=== PATIENT | male | born 1985 | race Two or more races ===

== ENCOUNTER 2016-09-07 17:46 | Emergency (ER) | payer MEDICAID ==
[2016-09-07 17:56] VITALS: BP 148/110; PULSE 68; RESP 16; TEMP 98.2; O2SAT 95
--- NOTE | 2016-09-07 18:01 | EDPHY ---
H & P Time Seen by Provider: 09/07/16 17:59 HPI/ROS: CHIEF COMPLAINT: Back/buttock pain HISTORY OF PRESENT ILLNESS: Patient has had nontraumatic right side lower back and buttock pain for last 3 weeks, radiating to right leg. He was seen at [facility] yesterday and had x-rays done and was prescribed cyclobenzaprine. Today took 1 oral cyclobenzaprine and a single 200 mg oral ibuprofen. Patient describes pain which is in his right buttock and radiating down his right leg toward his foot. Occasionally his right foot feels sleepy but generally has preserved sensation and motor function. No incontinence. Presents today because he says symptoms are severe compared to yesterday, and worse with movement or walking. Better lying down. Not associated with fever or chills or any recent injury or trauma. REVIEW OF SYSTEMS: Eye: no change in vision ENT: no sore throat Cardiac: no chest pain or syncope Pulmonary: no cough or SOB Abdomen: no vomiting, diarrhea, abdominal pain Musculoskeletal: HPI; some bilateral calf soreness last 48 hours. Skin: no rash Neuro: no headache Constitutional: no fever : no urinary symptoms A comprehensive 10 point review of systems is otherwise negative aside from elements mentioned in the history of present illness. PAST MEDICAL HISTORY: Recently diagnosed hypertension, no previous back surgeries, no history of cancer. No history of DVT. Social history: Here with partner, negative for IV drug abuse. No recent travel, no family history of venous thromboembolism. General Appearance: Alert and conversant, cooperative. Eyes: No scleral icterus. ENT, Mouth: Normal mucous membranes. Respiratory: Normal respiratory effort, breath sounds equal, lungs are clear to auscultation. Cardiovascular: Regular rate and rhythm. Normal dorsalis pedis pulses bilaterally. Gastrointestinal: Abdomen is soft and non tender. No pulsatile masses. Neurological: Alert and oriented x3. Normally conversant. Face symmetric, normal movement and sensation in all extremities. Straight leg raising positive on the right at 20 degrees for reproduction of symptoms. Patellar reflexes 3+ and symmetric, ankle reflexes 1+ bilaterally symmetric, toes downgoing and no clonus. Ambulatory. Skin: Warm and dry, no rashes. No zoster. Musculoskeletal: No cervical thoracic or lumbar midline spinal tenderness to palpation. No paraspinal muscle tenderness to palpation but he does have tenderness over the right sciatic notch. No calf tenderness either side, compartments soft in both thighs and calves. Psychiatric: Not agitated. Emergency Department course/MDM: Does not have red flags to suggest high likelihood for emergent surgical conditions such as epidural abscess or spinal cord compromise or fracture or dislocation. I think DVT or venous thromboembolism would be unlikely. Risk benefit and alternatives of steroid therapy discussed and consented. Does not have local point muscular tenderness to suggest likely benefit from trigger point injection. Oral Vicodin 7 for pain not controlled by NSAID, muscle relaxant, steroids. Patient's blood pressure is noted, he was started on antihypertensive medication today by his primary care physician. Aortic aneurysm or dissection or other vascular problem considered but thought not likely source for symptoms. Smoking Status: Light smoker Constitutional: Initial Vital Signs Temperature (C) 36.8 C 09/07/16 17:52 Heart Rate 68 09/07/16 17:52 Respiratory Rate 16 09/07/16 17:52 Blood Pressure 148/110 H 09/07/16 17:52 O2 Sat (%) 95 09/07/16 17:52 O2 Delivery Mode Room Air Allergies/Adverse Reactions: No Known Allergies Allergy (Verified 09/07/16 17:51) Home Medications: Medication Instructions Recorded Cyclobenzaprine 09/07/16 Hydrocodone/Acetaminophen [Vicodin 1 each PO Q6 #7 tablet 09/07/16 5-300 mg Tablet] predniSONE 10 mg PO AD #15 tab 09/07/16 Medical Decision Making - Data Points Medications Given: Discontinued Medications Ibuprofen (Motrin) 600 mg PO EDNOW ONE Stop: 09/07/16 18:18 Last Admin: 09/07/16 18:21 Dose: 600 mg Ibuprofen (Motrin) 600 mg PO EDNOW ONE Stop: 09/07/16 18:25 Last Admin: 09/07/16 18:27 Dose: 600 mg Departure - Departure Disposition: Home, Routine, Self-Care Clinical Impression: Sciatica Qualifiers: Laterality: right Qualified Code(s): M54.31 - Sciatica, right side Condition: Good Instructions: Sciatica (ED) Additional Instructions: 1. Oral ibuprofen 600 mg every 6 hours for the next 3 days. 2. Prescription for Flexeril already written, take as prescribed. 3. Prescription for 7 oral Vicodin, take as needed for severe pain not controlled by the above medications. 4. Follow-up with your primary care clinic ([facility]) next week. 5. Return immediately if you get worsening or severe back pain, fever, weakness or numbness in legs or feet, trouble with bowel or bladder. Referrals: [facility] [Outside] - As per Instructions Prescriptions: Hydrocodone/Acetaminophen [Vicodin 5-300 mg Tablet] 1 each PO Q6 #7 tablet predniSONE 10 mg PO AD #15 tab
[2016-09-07] MEDS ORDERED: IBUPROFEN 600 MG TAB PO ONE (18:17)
[2016-09-07] MEDS ORDERED: IBUPROFEN 200 MG TAB PO ONE (18:24)
== END 2016-09-07 18:22 | disposition home or self-care (01) ==
LOC: CED 17:46
DX: M54.31 Sciatica, right side (principal); F17.200 Nicotine dependence, unspecified, uncomplicated; I10 Essential (primary) hypertension

== ENCOUNTER 2017-03-31 10:57 | Emergency (ER) | payer MEDICAID ==
[2017-03-31 11:12] VITALS: TEMP 99.7
[2017-03-31] MEDS ORDERED: IPRATROPIUM/ALBUTEROL 3 ML DEYVIAL IH ONE (11:26)
[2017-03-31] MEDS ORDERED: ACETAMINOPHEN 325 MG TAB PO ONE (11:41)
--- NOTE | 2017-03-31 12:45 | EDPHY ---
H & P Time Seen by Provider: 03/31/17 11:52 HPI/ROS: This patient reports dry cough, fevers chills and aches over the past 48 hr. She reports myalgias and reports partial relief from ibuprofen 600 mg at 7:00 a.m. prior to arrival. She vomited once yesterday, but tolerated p.o. intake this morning without emesis and has no nausea currently. There are No other associated symptoms with some this except for subjective fevers and chills. She reports the throat pain is moderate intensity currently. The throat pain worsens when she coughs. She describes the nature the pain is achy. ROS: No significant fatigue. Fevers as per HPI. No other constitutional symptoms HEENT: Minimal nasal congestion. No facial pain. No ear pain. Pulmonary: The no pleuritic pain. No hemoptysis. Cardiovascular: No lightheadedness GI: No abdominal pain Musculoskeletal: Positive myalgias Integumentary: No skin rash Neuro: No complaints 10 point ROS is otherwise negative Smoking Status: Light smoker Physical Exam: Physical Exam Vital signs are normal. General: Pleasant black female No acute distress HEENT: Nose: Clear discharge bilaterally. No sinus tenderness to percussion. Ears: External canals and tympanic membranes are clear with no erythema or abnormal findings bilaterally. Oropharynx: Mild posterior pharyngeal erythema is present. No exudates are appreciated. She has mild dysphonia/hoarseness. No stridor. Eyes: Pupils equal and react to light. Extraocular motions are intact. Neck: Supple with no meningismus. No lymphadenopathy Lungs: Clear to auscultation bilaterally with no rales, rhonchi or wheeze. No respiratory distress. Cardiac: Regular rate and rhythm with no murmur gallop or rub Skin: No rash or pallor. Neuro: Alert with no focal deficits noted. Initial differential diagnosis: Influenza, viral URI with cough, doubt bronchitis or pneumonia Constitutional: Initial Vital Signs Temperature (C) 37.6 C 03/31/17 11:08 Heart Rate 104 H 03/31/17 11:08 Respiratory Rate 20 03/31/17 11:08 Blood Pressure 158/109 H 03/31/17 11:08 O2 Sat (%) 93 03/31/17 11:08 O2 Delivery Mode Room Air Allergies/Adverse Reactions: No Known Allergies Allergy (Verified 03/31/17 11:06) Home Medications: Medication Instructions Recorded Albuterol Hfa Anes Only [Proair 2 puffs IH Q4 PRN #1 mdi 03/31/17 Hfa Icu (*)] Gabapentin 03/31/17 MDM/Departure - MDM Diagnostics: Rapid Influenza test: Positive for influenza A Medications Given: Discontinued Medications Acetaminophen (Tylenol) 975 mg PO EDNOW ONE Stop: 03/31/17 11:42 Last Admin: 03/31/17 11:50 Dose: 975 mg Albuterol/Ipratropium (Duoneb) 3 ml IH EDNOW ONE Stop: 03/31/17 11:27 Last Admin: 03/31/17 11:31 Dose: 3 ml ED Course/Re-evaluation: Counseled the patient regarding influenza. Patient received Tylenol here in addition to the ibuprofen she had prior to arrival and a feels significantly improved prior to discharge. She has no clinical evidence to suggest lower respiratory infection or other complicating factors. - Depart Disposition: Home, Routine, Self-Care Clinical Impression: Influenza A Condition: Good Instructions: Albuterol (By breathing), Influenza (ED) Additional Instructions: Diagnosis: Influenza A Plan: Humidifier Continue ibuprofen-600 mg per 6 hr for fevers and aches as needed. Add Tylenol in addition if needed Albuterol inhaler with spacer for cough, wheeze or shortness of breath No work until 24 hr after your fever has resolved. Return for any significant worsening despite the treatment plan Stand Alone Forms: Work Excuse Prescriptions: Albuterol Hfa Anes Only [Proair Hfa Icu (*)] 2 puffs IH Q4 PRN #1 mdi PRN Reason: Wheezing Referrals: [facility] [Other] - As per Instructions
[2017-03-31 13:01] VITALS: BP 154/96; PULSE 96; RESP 18; O2SAT 93
== END 2017-03-31 12:57 | disposition home or self-care (01) ==
LOC: CED 10:57
DX: J10.1 Influenza due to other identified influenza virus with other respiratory manifestations (principal); F17.200 Nicotine dependence, unspecified, uncomplicated
CPT/HCPCS: 71020-PO; 87400-PO